=== PATIENT | male | born 1960 | race Two or more races ===

== ENCOUNTER 2020-10-01 10:45 | Inpatient (IN) | payer MEDICARE ==
[~2020-10-01] VITALS: Ht 175.3 cm; Wt 73.5 kg
[~2020-10-01 10:45] MED LIST: IBU800 MG PO; ROBAXIN-750750 MG PO
[2020-10-01 11:13] LABS: HEMOGLOBIN 15.3 gm/dl (14.0-17.5); RED BLOOD COUNT 5.28 M/UL (4.20-5.50); WHITE BLOOD COUNT 7.1 K/UL (4.5-11.0)
[2020-10-01 11:40] LABS: BUN/CREATININE RATIO 28 (0-10)
[2020-10-01] MEDS ORDERED: ALEVE220 MG PO (12:59)
[2020-10-01] MEDS ORDERED: OMEGA 3 1,0001 EACH PO (13:00)
[2020-10-01] MEDS ORDERED: ZINC50 M3 PO (13:00)
[2020-10-01] MEDS ORDERED: PROBIOTIC1 EACH PO (13:00)
[2020-10-02 04:19] LABS: HEMOGLOBIN 14.8 gm/dl (14.0-17.5); RED BLOOD COUNT 5.17 M/UL (4.20-5.50); WHITE BLOOD COUNT 7.1 K/UL (4.5-11.0)
[2020-10-02 04:34] LABS: BUN/CREATININE RATIO 19 (0-10)
[2020-10-05] MEDS ORDERED: NITROGLYCERIN0.4 MG SL (11:39)
[2020-10-05] MEDS ORDERED: ASPIRIN EC81 MG PO (11:39)
[2020-10-05] MEDS ORDERED: ATORVASTATIN CA20 MG PO (11:39)
== END 2020-10-05 14:02 | disposition home or self-care (01) | DRG 287 ==
LOC: ER1 10:45 → MED SURG 4 12:42 → CDU 12:42 → MED SURG 4 14:08
PROVIDERS: Physician Assistant; Physician Assistant Medical; ADMIT Internal Medicine Infectious Disease
PROC: B24BZZ4 Ultrasonography of Heart with Aorta, Transesophageal (ICD-10-PCS; 2020-10-01)
PROC: 4A023N7 Measurement of Cardiac Sampling and Pressure, Left Heart, Percutaneous Approach (ICD-10-PCS; principal; 2020-10-05)
PROC: B2111ZZ Fluoroscopy of Multiple Coronary Arteries using Low Osmolar Contrast (ICD-10-PCS; 2020-10-05)
DX: I25.119 Atherosclerotic heart disease of native coronary artery with unspecified angina pectoris (principal); E78.5 Hyperlipidemia, unspecified; F17.210 Nicotine dependence, cigarettes, uncomplicated; Z20.822 Contact with and (suspected) exposure to COVID-19; I08.1 Rheumatic disorders of both mitral and tricuspid valves; Z80.9 Family history of malignant neoplasm, unspecified; Z82.49 Family history of ischemic heart disease and other diseases of the circulatory system; Z79.82 Long term (current) use of aspirin
CPT/HCPCS: ECHO; 36415; 71045; 78452; 80048; 80053; 80061; 82550; 82553; 83036; 83735; 83874; 84484; 85025; 85027; 93005; 93017; 93306; 99152; 99285; A9502; C1769; C1894; J1644; J2250; J3010; J7040; Q9967; U0002